=== PATIENT | female | born 1990 | race Caucasian/White ===

== ENCOUNTER 2021-05-24 19:39 | Emergency (ER) | payer MEDICAID ==
[~2021-05-24] VITALS: Ht 154.9 cm; Wt 53.6 kg
[~2021-05-24 19:39] MED LIST: IBUP-1984 PO
[2021-05-24 20:36] VITALS: BP 139/83
[2021-05-24] MEDS ORDERED: CLIN-97 PO (20:59)
[2021-05-24] MEDS ORDERED: LIDO20SO16 PO (20:59)
[2021-05-24] MEDS ORDERED: PRED20TA PO (20:59)
== END 2021-05-24 21:38 | disposition home or self-care (01) ==
LOC: ER 19:40
DX: K04.7 Periapical abscess without sinus (principal); Z88.0 Allergy status to penicillin; Z79.899 Other long term (current) drug therapy
CPT/HCPCS: 99283